=== PATIENT | female | born 1990 | race Caucasian/White ===

== ENCOUNTER 2017-03-30 21:01 | Emergency (ER) | payer SELFPAY ==
[2017-03-31 00:48] LABS: BASOPHIL % 0.4 % (0-2); PLATELET COUNT 325 x10^3mcL (130-400); RED CELL DISTRIBUTION WIDTH 12.6 % (11.5-14.5)
[2017-03-31 00:55] LABS: CALCIUM 8.7 mg/dL (8.5-10.1); CARBON DIOXIDE 27.2 mmol/L (21-32); CHLORIDE SERUM 105 mmol/L (98-107); CREATININE SERUM 0.7 mg/dL (0.6-1.0); GFR1 > 60 mL/min; GLUCOSE SERUM 99 mg/dL (74-106); POTASSIUM SERUM 3.7 mmol/L (3.5-5.1); SODIUM SERUM 139 mmol/L (136-145)
[2017-03-31 01:08] LABS: ALBUMIN 3.6 g/dL (3.4-5.0); ALKALINE PHOSPHATASE 70 U/L (46-116); ALT/SGPT 141 U/L (14-59); AST/SGOT 59 U/L (15-37); BILIRUBIN TOTAL 0.26 mg/dL (0.20-1.00); LIPASE 117 IU/L (73-393); TOTAL PROTEIN, SERUM 6.9 g/dL (6.4-8.2)
[2017-03-31 02:42] VITALS: BP 134/67
== END 2017-03-31 02:42 | disposition home or self-care (01) ==
LOC: ED 21:01
PROVIDERS: Emergency Medicine
DX: R10.31 Right lower quadrant pain (principal); R20.0 Anesthesia of skin
CPT/HCPCS: 83880; J2270; J2405; J7030

== ENCOUNTER 2017-05-03 16:46 | Emergency (ER) | payer MEDICAID ==
[~2017-05-03] VITALS: Ht 157.5 cm; Wt 81.6 kg
[2017-05-03 18:12] LABS: BASOPHIL % 0.4 % (0-2); PLATELET COUNT 340 x10^3mcL (130-400); RED CELL DISTRIBUTION WIDTH 12.4 % (11.5-14.5)
[2017-05-03 18:19] LABS: CALCIUM 9.5 mg/dL (8.5-10.1); CARBON DIOXIDE 28.8 mmol/L (21-32); CHLORIDE SERUM 104 mmol/L (98-107); CREATININE SERUM 0.6 mg/dL (0.6-1.0); GFR1 > 60 mL/min; GLUCOSE SERUM 90 mg/dL (74-106); SODIUM SERUM 144 mmol/L (136-145)
[2017-05-03 18:25] LABS: ALBUMIN 4.3 g/dL (3.4-5.0); ALKALINE PHOSPHATASE 83 U/L (46-116); ALT/SGPT 147 U/L (14-59); AST/SGOT 68 U/L (15-37); BILIRUBIN TOTAL 0.24 mg/dL (0.20-1.00); CHOLESTEROL 232 mg/dL (<200); TOTAL PROTEIN, SERUM 8.1 g/dL (6.4-8.2)
[2017-05-03 18:26] LABS: UA SPECIFIC GRAVITY 1.025 (1.005-1.035); microscopic required? YES; urine erythrocyte 1+ (NEGATIVE)
[2017-05-03 18:37] LABS: AMPHETAMINE QUAL UR NONE DETECTED (NEG <=1000)
[2017-05-03 22:52] VITALS: BP 119/68
== END 2017-05-03 22:53 | disposition home or self-care (01) ==
LOC: ED 16:46
PROVIDERS: Specialist
DX: S76.111A Strain of right quadriceps muscle, fascia and tendon, initial encounter (principal); E05.90 Thyrotoxicosis, unspecified without thyrotoxic crisis or storm; F41.9 Anxiety disorder, unspecified; X58.XXXA Exposure to other specified factors, initial encounter; Y93.39 Activity, other involving climbing, rappelling and jumping off; Y92.89 Other specified places as the place of occurrence of the external cause; Y99.8 Other external cause status
CPT/HCPCS: 83880; J1885; J7030

== ENCOUNTER 2017-05-04 15:11 | Emergency (ER) | payer MEDICAID ==
[2017-05-04 15:20] VITALS: BP 123/82
== END 2017-05-04 19:13 | disposition home or self-care (01) ==
LOC: ED 15:11
DX: M79.604 Pain in right leg (principal); R20.0 Anesthesia of skin; E03.9 Hypothyroidism, unspecified
CPT/HCPCS: J1885

== ENCOUNTER 2017-07-12 16:22 | Emergency (ER) | payer MEDICAID ==
[2017-07-12 18:11] LABS: BASOPHIL % 0.5 % (0-2); RED CELL DISTRIBUTION WIDTH 12.5 % (11.5-14.5)
[2017-07-12 18:14] LABS: PLATELET COUNT 402 x10^3mcL (130-400)
[2017-07-12 18:32] LABS: CALCIUM 9.1 mg/dL (8.5-10.1); CARBON DIOXIDE 30.4 mmol/L (21-32); CHLORIDE SERUM 100 mmol/L (98-107); CREATININE SERUM 0.7 mg/dL (0.6-1.0); GFR1 > 60 mL/min; GLUCOSE SERUM 100 mg/dL (74-106); POTASSIUM SERUM 3.6 mmol/L (3.5-5.1); SODIUM SERUM 140 mmol/L (136-145)
[2017-07-12 18:37] LABS: ALKALINE PHOSPHATASE 115 U/L (46-116); ALT/SGPT 273 U/L (14-59); AST/SGOT 153 U/L (15-37); BILIRUBIN TOTAL 0.3 mg/dL (0.20-1.00); LIPASE 236 IU/L (73-393); TOTAL PROTEIN, SERUM 7.9 g/dL (6.4-8.2)
[2017-07-12 19:49] VITALS: BP 132/81
== END 2017-07-12 19:49 | disposition home or self-care (01) ==
LOC: ED 16:22
PROVIDERS: Emergency Medicine
DX: R10.31 Right lower quadrant pain (principal); R74.0 Nonspecific elevation of levels of transaminase and lactic acid dehydrogenase [LDH]; Z90.89 Acquired absence of other organs
CPT/HCPCS: 36415; J1885

== ENCOUNTER 2017-09-26 00:03 | Emergency (ER) | payer SELFPAY ==
[~2017-09-26] VITALS: Ht 160 cm; Wt 83.0 kg
[2017-09-26 00:07] VITALS: BP 115/84; Ht 160 cm; Wt 83.0 kg
== END 2017-09-26 03:31 | disposition left against medical advice (07) ==
LOC: ED 00:03
DX: Z53.21 Procedure and treatment not carried out due to patient leaving prior to being seen by health care provider (principal)

== ENCOUNTER 2017-12-10 11:35 | Emergency (ER) | payer SELFPAY ==
[~2017-12-10] VITALS: Ht 154.9 cm; Wt 83.5 kg
[2017-12-10 11:42] VITALS: Ht 154.9 cm; Wt 83.5 kg
[2017-12-10 13:13] VITALS: BP 128/78
== END 2017-12-10 13:13 | disposition home or self-care (01) ==
LOC: ED 11:35
DX: J06.9 Acute upper respiratory infection, unspecified (principal); E03.9 Hypothyroidism, unspecified
CPT/HCPCS: Q0092

== ENCOUNTER 2018-02-26 10:09 | Emergency (ER) | payer OTHER ==
[~2018-02-26] VITALS: Ht 154.9 cm; Wt 81.6 kg
[2018-02-26 10:14] VITALS: Ht 154.9 cm; Wt 81.6 kg
[2018-02-26 13:07] VITALS: BP 130/71
== END 2018-02-26 13:07 | disposition home or self-care (01) ==
LOC: ED 10:09
DX: R10.32 Left lower quadrant pain (principal); E03.9 Hypothyroidism, unspecified
CPT/HCPCS: J1885

== ENCOUNTER 2018-09-28 06:25 | Emergency (ER) | payer MEDICAID ==
[~2018-09-28] VITALS: Ht 154.9 cm; Wt 85.7 kg
[2018-09-28 06:28] VITALS: Ht 154.9 cm; Wt 85.7 kg
[2018-09-28 07:22] LABS: BASOPHIL % 0.5 % (0-2); PLATELET COUNT 377 x10^3mcL (130-400); RED CELL DISTRIBUTION WIDTH 12.8 % (11.5-14.5)
[2018-09-28 07:38] LABS: CARBON DIOXIDE 27.5 mmol/L (21-32); CHLORIDE SERUM 98 mmol/L (98-107); CREATININE SERUM 0.7 mg/dL (0.6-1.0); GFR1 > 60 mL/min; GLUCOSE SERUM 160 mg/dL (74-106); POTASSIUM SERUM 3.8 mmol/L (3.5-5.1); SODIUM SERUM 136 mmol/L (136-145)
[2018-09-28 07:43] LABS: ALKALINE PHOSPHATASE 83 U/L (46-116); ALT/SGPT 273 U/L (14-59); AST/SGOT 141 U/L (15-37); BILIRUBIN TOTAL 0.53 mg/dL (0.20-1.00); TOTAL PROTEIN, SERUM 7.9 g/dL (6.4-8.2)
[2018-09-28 11:00] VITALS: BP 125/70
== END 2018-09-28 11:39 | disposition home or self-care (01) ==
LOC: ED 06:25
PROVIDERS: Emergency Medicine
DX: R10.32 Left lower quadrant pain (principal); E28.2 Polycystic ovarian syndrome; E03.9 Hypothyroidism, unspecified; Z90.89 Acquired absence of other organs
CPT/HCPCS: 36415; J1885

== ENCOUNTER 2019-08-13 16:30 | Emergency (ER) | payer SELFPAY ==
[~2019-08-13] VITALS: Ht 154.9 cm; Wt 81.6 kg
[2019-08-13 16:40] VITALS: Ht 154.9 cm; Wt 81.6 kg
[2019-08-13 19:44] VITALS: BP 140/82
== END 2019-08-13 19:44 | disposition home or self-care (01) ==
LOC: ED 16:30
DX: N39.0 Urinary tract infection, site not specified (principal); E03.9 Hypothyroidism, unspecified; Z90.89 Acquired absence of other organs
CPT/HCPCS: J1885